=== PATIENT | female | born 1965 | race Caucasian/White ===

== ENCOUNTER → 2019-01-08 14:00 | Outpatient (CLI) | payer MEDICARE, MEDICAID, SELFPAY ==
--- NOTE | 2019-01-08 14:09 | US_ITS ---
STUDY: RENAL ULTRASOUND - COMPLETE REASON FOR EXAM: Female, 53 years old. Recurrent urinary tract infections TECHNIQUE: Ultrasound evaluation of the kidneys was performed with real-time and static tong-scale imaging. COMPARISON: None. FINDINGS: RIGHT KIDNEY: Normal location of the right kidney, which is normal in size. The right kidney measures 13.7 x 5.7 x 4.9 cm. There is a normal cortex of the right kidney. The renal cortex measures 1.5 cm. There is no right renal mass or cyst. There are no right renal calculi. Slight fullness of the renal pelvis. No overt hydronephrosis. DISTAL RIGHT URETER: There is non-visualization of the distal right ureter. There is no demonstrated right ureterovesical junction calculus. There is a visualized right ureteral jet. LEFT KIDNEY: Normal location of the left kidney, which is normal in size. The left kidney measures 12.3 x 6.3 x 5.3 cm. There is a normal cortex of the left kidney. The renal cortex measures 1.2 cm. There is no left renal mass or cyst. There are no left renal calculi. There is no left hydronephrosis. DISTAL LEFT URETER: There is non-visualization of the distal left ureter. There is no demonstrated left ureterovesical junction calculus. There is a visualized left ureteral jet. AORTA: Not visualized. I.V.C.: The IVC is obscured. BLADDER: The distended urinary bladder has a volume of 122.5 ml. The patient did not void for the examination.. Mild bladder wall thickening 4.9 mm. There is no demonstrated mass within the urinary bladder. There are no demonstrated bladder calculi. US/Kidney and Bladder IMPRESSION: There is mild bladder wall thickening present. Slight fullness of the right renal pelvis without overt hydronephrosis. Electronically Signed: Kehinde Andrew, at 7:57 EDT Tel , Service support ,
== END ==
PROVIDERS: Referring Provider Urology; Visit Provider Urology
DX: N39.0 Urinary tract infection, site not specified (principal); N20.0 Calculus of kidney
CPT/HCPCS: 76770

== ENCOUNTER → 2019-11-09 11:13 | Outpatient (CLI) | payer MEDICARE, MEDICAID, SELFPAY ==
[2019-07-09 09:34] VITALS: BMI 37.5
[2019-11-05 14:51] VITALS: BMI 37.5
--- NOTE | 2019-11-09 11:19 | CT_ITS ---
STUDY: CT BRAIN WITHOUT CONTRAST REASON FOR EXAM: Female, 54 years old. Bone mets, radiation treatment planning, hx breast cancer. RADIATION DOSAGE (If Supplied By Facility): CTDIvol = ( 6.75 ) mGy, DLP = ( 183.18 ) mGycm TECHNIQUE: Transaxial CT imaging of the brain was performed without administration of intravenous contrast material. Individualized dose optimization techniques were used for this CT. COMPARISON: No relevant priors. FINDINGS: Normal soft tissue structures. Normal calvarium. Normal size ventricles and extra-axial spaces for the patient''s age. Normal white matter tracts of the cerebral hemispheres. Normal basal ganglia and thalami. Normal brainstem. Normal cerebellum. There is no intracranial hemorrhage. There are no findings of an acute ischemic infarction. There is a 1.6 cm x 2.3 cm cyst or mucosal polyp at the base of the right maxillary sinus. CT/Brain/Head without Contrast IMPRESSION: Small mucosal retention cyst or polyp at the base of the right maxillary sinus. Electronically Signed: Mike Silva, at 12:36 EDT , Service support ,
== END ==
LOC: MRI 11-10 10:33 → CT 11-10 13:37
PROVIDERS: PCP Family Medicine; Referring Provider Radiology Radiation Oncology; Visit Provider Radiology Radiation Oncology
DX: C79.51 Secondary malignant neoplasm of bone (principal); Z85.3 Personal history of malignant neoplasm of breast
CPT/HCPCS: 70450

== ENCOUNTER → 2020-06-02 | Outpatient (CLI) | payer OTHER, SELFPAY ==
[2020-05-05 08:02] VITALS: BMI 34.2
== END | disposition home or self-care (01) ==
LOC: LABSPEC 15:23
PROVIDERS: PCP Family Medicine; Visit Provider Otolaryngology
DX: J32.9 Chronic sinusitis, unspecified (principal)
CPT/HCPCS: 87070; 87205

== ENCOUNTER → 2020-10-06 10:40 | Outpatient (CLI) | payer MEDICARE, MEDICAID, SELFPAY ==
[2020-05-05 08:02] VITALS: BMI 34.2
[2020-10-06 09:46] VITALS: BMI 34.2
--- NOTE | 2020-10-06 10:47 | US_ITS ---
STUDY: RENAL ULTRASOUND - COMPLETE REASON FOR EXAM: Female, 55 years old. Flank pain, fever TECHNIQUE: Ultrasound evaluation of the kidneys was performed with real-time and static tong-scale imaging. COMPARISON: None. FINDINGS: RIGHT KIDNEY: Normal location of the right kidney, which is normal in size. The right kidney measures 13.6 x 6 x 6.7 cm. There is a normal cortex of the right kidney. The renal cortex measures 1.8 cm. There is no right renal mass or cyst. There are no right renal calculi. There is mild hydronephrosis of the right kidney, of uncertain etiology. DISTAL RIGHT URETER: There is non-visualization of the distal right ureter. There is no demonstrated right ureterovesical junction calculus. There is a visualized right ureteral jet. LEFT KIDNEY: Normal location of the left kidney, which is normal in size. The left kidney measures 14 x 4.8 x 7.8 cm. There is a normal cortex of the left kidney. The renal cortex measures 2.5 cm. There is no left renal mass or cyst. There are no left renal calculi. There is no left hydronephrosis. DISTAL LEFT URETER: There is non-visualization of the distal left ureter. There is no demonstrated left ureterovesical junction calculus. There is a visualized left ureteral jet. AORTA: There is no elongation or tortuosity of the abdominal aorta. I.V.C.: The IVC is patent. BLADDER: The distended urinary bladder has a volume of 446 ml. The empty urinary bladder has a volume of less than 5 ml. There is a normal wall thickness of the distended urinary bladder. There is no demonstrated mass within the urinary bladder. There are no demonstrated bladder calculi. US/Kidney and Bladder IMPRESSION: Mild right hydronephrosis of uncertain etiology. No demonstrated stone or stricture. Sonographically normal left kidney and bladder Electronically Signed: Tobias Issa MD at 8:14 EDT , Service support ,
== END ==
PROVIDERS: PCP Family Medicine; Referring Provider Urology; Visit Provider Urology
DX: M54.9 Dorsalgia, unspecified (principal)
CPT/HCPCS: 76770

== ENCOUNTER → 2020-10-13 07:06 | Outpatient (CLI) | payer MEDICARE, MEDICAID, SELFPAY ==
[2020-10-06 09:46] VITALS: BMI 34.2
--- NOTE | 2020-10-13 07:10 | CT_ITS ---
EXAM: CT ABDOMEN AND PELVIS WITHOUT AND WITH INTRAVENOUS CONTRAST CLINICAL INDICATION: HYDRONCEPHROSIS TECHNIQUE: Helically acquired images were obtained of the abdomen and pelvis without and with intravenous contrast. This CT exam was performed using one or more of the following dose reduction techniques: automated exposure control, adjustment of the mA and/or kV according to patient size, and/or use of iterative reconstruction technique. This report was created using [employer] report generation technology. Delayed imaging was performed. Coronal and sagittal reformatted images were created and reviewed. CONTRAST: IV 100mL Isovue-300 COMPARISON: Ultrasound 10/06/2020, PET scan 06/11/2011 FINDINGS: LOWER THORAX: Unremarkable. Lung bases are clear. No cardiomegaly. No significant pericardial effusion. ABDOMEN: LIVER: Unremarkable. Homogeneous. No focal mass. GALLBLADDER AND BILE DUCTS: Cholecystectomy. No intra- or extrahepatic biliary ductal dilation. PANCREAS: Unremarkable. No focal cystic or solid mass. SPLEEN: Unremarkable. Normal size without focal cystic or solid mass. ADRENALS: Unremarkable. No nodules. KIDNEYS AND URETERS: Minimal right extrarenal pelvis but no greta hydronephrosis. No ureteral calculi or hydroureter. Normal renal size and position. Nonobstructing calculus of the inferior left kidney. STOMACH AND BOWEL: Unremarkable. No stomach or bowel distention. No focal inflammatory change. PELVIS: APPENDIX: Appendectomy. BLADDER: Unremarkable. REPRODUCTIVE: Unremarkable as visualized. No mass. Hysterectomy. ABDOMEN and PELVIS: INTRAPERITONEAL SPACE: Unremarkable. No ascites or other fluid collection. No free air. BONES/JOINTS: Degenerative changes of the lumbar spine. There are multiple sclerotic dominant lesions at lumbar vertebral bodies and the osseous pelvis, particularly involving the left side of the sacrum, new since prior PET scan. SOFT TISSUES: Small fat-containing periumbilical hernia. VASCULATURE: Unremarkable. Abdominal aorta is non-dilated. LYMPH NODES: Unremarkable. No enlarged lymph nodes. CT/CT Abd/Pelvis W/WO Contrast IMPRESSION: 1. Minimal right extrarenal pelvis but no greta hydronephrosis. No ureteral calculi, obstruction or hydroureter. 2. Nonobstructing inferior left renal calculus (3.5 mm). 3. Multiple sclerotic dominant osseous lesions particularly involving the left side of the sacrum new since prior PET scan of 2011. Possibly related to patient''s known metastatic breast cancer. Clinical correlation recommended. Correlation with intervening relevant imaging recommended. Electronically Signed: Zana Ansari MD ([place]) at 16:24 EDT , Service support ,
[2020-10-13 07:30] LABS: EGFR FINGERSTICK > 60.0000 mL/min (>60)
== END ==
PROVIDERS: PCP Family Medicine; Referring Provider Urology; Visit Provider Urology
DX: N13.2 Hydronephrosis with renal and ureteral calculous obstruction (principal)
CPT/HCPCS: 74178; Q9967; A4216

== ENCOUNTER → 2021-03-06 07:05 | Outpatient (CLI) | payer MEDICARE, MEDICAID, SELFPAY ==
--- NOTE | 2021-03-06 07:09 | US_ITS ---
INDICATION: THYROID NODULE EXAMINATION: Ultrasound US Thyroid (eg thyroid, parathyroid, parotid) TECHNIQUE: Mayo scale and color doppler imaging was performed of the thyroid gland. COMPARISON: None. FINDINGS: RIGHT THYROID LOBE: The right lobe of the thyroid gland is unremarkable in size demonstrates homogeneous echogenicity and unremarkable vascularity, The right lobe of the thyroid gland measures 4.8 x 1.9 x 1.5 cm. 1 nodule larger than 0.5 cm is visualized in the right lobe of the thyroid gland. 4 nodules less than 0.5 cm are visualized in the right lobe of the thyroid gland. #1- Location: Upper pole Size: 0.8 x 0.7 x 0.5 cm Composition: 2 Echogenicity: 1 Shape: 0 Margins: 0 Echogenic Foci: 0 Total points 3, TIRADS level TR3 LEFT THYROID LOBE: The left lobe of the thyroid gland is unremarkable in size demonstrating homogenous echogenicity and unremarkable vascularity. The left lobe of the thyroid gland measures 4.7 x 1.6 x 1.4 cm. 5 nodules are visualized within the left lobe. #2- Location: Upper pole Size: 0.9 x 0.9 x 0.6 cm Composition: 2 Echogenicity: 1 Shape: 0 Margins: 0 Echogenic Foci: 0 Total points 3, TIRADS level TR3 #3- Location: Midpole Size: 0.9 x 0.8 x 0.5 cm Composition: 2 Echogenicity: 1 Shape: 0 Margins: 0 Echogenic Foci: 0 Total points 3, TIRADS level TR3 #4- Location: Upper pole Size: 0.7 x 0.8 x 0.6 cm. Composition: 2 Echogenicity: 1 Shape: 0 Margins: 0 Echogenic Foci: 0 Total points 3, TIRADS level TR3 #5- Location: Lower pole Size: 1.1 x 0.9 x 0.6 cm Composition: 2 Echogenicity: 1 Shape: 0 Margins: 0 Echogenic Foci: 0 Total points 3, TIRADS level TR3 #6- Location: Lower pole Size: 0.6 x 0.6 x 0.4 cm Composition: 0 Echogenicity: 0 Shape: 0 Margins: 0 Echogenic Foci: 0 Total points 0, TIRADS level TR1 ISTHMUS: The isthmus demonstrates homogenous echogenicity and measures 0.3 cm in AP diameter. No evidence of nodules within the isthmus. US/Thyroid IMPRESSION: The thyroid gland demonstrates unremarkable size with homogenous echogenicity and vascularity. A 0.8 cm TR 3 nodule visualized in the upper pole of the right lobe. A 0.9 cm TR 3 nodule visualized in the upper pole of the left lobe. A 0.9 cm TR 3 nodule visualized in the mid pole of the left lobe. A 0.8 cm TR 3 nodule visualized in the mid pole of the left lobe. A 1.1 cm TR 3 nodule visualized in the lower pole of the left lobe. A 0.6 cm TR 1 nodule visualized in the lower pole of the left lobe. TR3: Mildly suspicious (3 pts) FNA biopsy if nodule at least 2.5cm; follow if at least 1.5cm at 1,3 and 5 years. TI-RADS follow up recommendations: TR1: Benign (0pts) No FNA biopsy. TR2: Not suspicious (2 pts) No FNA biopsy. TR3: Mildly suspicious (3 pts) FNA biopsy if nodule at least 2.5cm; follow if at least 1.5cm TR4: Moderately suspicious (4-6 pts) FNA biopsy if nodule at least 1.5cm; follow if at least 1 cm TR5: Highly suspicious (at least 7 pts) FNA if nodule at least 1cm; follow if at least 0.5cm. Electronically Signed: Rizwan Marrero MD at 11:25 EST Tel , Service support ,
--- NOTE | 2021-03-06 07:09 | RAD_ITS ---
INDICATION: GERD EXAMINATION/TECHNIQUE: Thick and thin barium oral contrast and effervescent granules were administered to the patient. Total Fluoroscopic Time: 1:12 minutes AND number of Fluoroscopic Images: 17 COMPARISON: None. FINDINGS: No masses or strictures are identified. There is a small type I hiatus hernia. The mucosal pattern is unremarkable. There is normal motility. Mild to moderate degree of gastroesophageal reflux was identified. RAD/Esophagus Single Contrast IMPRESSION: No evidence of structural esophageal motility, unremarkable mobility. Mild to moderate degree of gastroesophageal reflux was identified. Electronically Signed: Rizwan Marrero MD at 11:00 EST Tel , Service support ,
== END ==
PROVIDERS: PCP Family Medicine; Referring Provider Otolaryngology; Visit Provider Otolaryngology
DX: K21.9 Gastro-esophageal reflux disease without esophagitis (principal); E04.1 Nontoxic single thyroid nodule
CPT/HCPCS: 74220; 76536

== ENCOUNTER 2021-04-11 07:36 | Outpatient (CLI) | payer MEDICARE, MEDICAID, SELFPAY ==
--- NOTE | 2021-04-11 07:40 | CT_ITS ---
STUDY: CT SOFT TISSUE NECK WITH CONTRAST REASON FOR EXAM: Female, 55 years old. LEFT NECK PAIN X YEARS, WORSENING, THYROID NODULES, HX BREAST CA, DM RADIATION DOSAGE (If Supplied By Facility): CTDIvol = ( 17.85 ) mGy, DLP = ( 521.75 ) mGycm TECHNIQUE: The patient was scanned in a multi-detector CT scanner. High resolution transaxial imaging was performed following intravenous administration of IV 75mL [id number]-[id number]. Sagittal and coronal images were reconstructed. Individualized dose optimization techniques were used for this CT. COMPARISON: None. FINDINGS: The visualized lung apices are clear. There are subcentimeter hypodense nodules in the thyroid which are better evaluated on the patient''s ultrasound dated 07/05/20. There is no cervical lymphadenopathy. There is no fluid collection or soft tissue mass. The bilateral parotid and submandibular glands are within normal limits. There is mucosal hypertrophy in the maxillary sinuses. The visualized paranasal sinuses are otherwise clear. The mastoid air cells are clear. The visualized intracranial structures are within normal limits. There are no destructive osseous lesions. CT/Soft Tissue Neck WITH Contrast IMPRESSION: No cervical lymphadenopathy. No fluid collection or soft tissue mass. Subcentimeter hypodense nodules in the thyroid which are better evaluated on the patient''s ultrasound dated 03/06/21. Bilateral maxillary sinusitis. Electronically Signed: Thai Turcios MD at 14:21 EST ,
== END 2021-04-11 23:59 | disposition short-term general hospital (02) ==
LOC: CT 07:38
PROVIDERS: PCP Family Medicine; Referring Provider Otolaryngology; Visit Provider Otolaryngology
DX: E04.1 Nontoxic single thyroid nodule (principal); J32.0 Chronic maxillary sinusitis
CPT/HCPCS: 70491; Q9967